=== PATIENT | male | born 2005 | race Caucasian/White ===

== ENCOUNTER 2024-07-01 14:40 | Emergency (ER) | payer BC | END 2024-07-01 19:01 | disposition home or self-care (01) | LOC: MW.ED 14:40 | DX: S09.90XA Unspecified injury of head, initial encounter (principal); J32.9 Chronic sinusitis, unspecified; I10 Essential (primary) hypertension; Z88.0 Allergy status to penicillin; Z75.8 Other problems related to medical facilities and other health care; W21.05XA Struck by basketball, initial encounter; Y93.67 Activity, basketball | CPT/HCPCS: 70450; 70450-26; 70486; 70486-26; 99283 ==